=== PATIENT | female | born 1970 | race Caucasian/White ===

== ENCOUNTER 2016-10-07 11:06 | Emergency (ER) | payer OTHER ==
[2016-10-07 11:12] VITALS: BP 107/70
--- NOTE | 2016-10-07 11:29 | ERNOTE ---
Date of Service: 10/07/16 Time Seen by Provider: 10/07/16 11:20 Stated Complaint: COLD Presenting Symptoms:: cough Source: patient Immunizations: IMMUNIZATION HX Immunizations Up to Date Yes History of Influenza Vaccine More Information Required Hx Pneumococcal Vaccination More Information Required Allergies/Adverse Reactions: Allergies duloxetine HCl [From Cymbalta] Allergy (Verified 10/07/16 11:12) olanzapine [From Zyprexa] Allergy (Verified 10/07/16 11:12) oxybutynin Allergy (Verified 10/07/16 11:12) quetiapine fumarate [From Seroquel] Allergy (Verified 10/07/16 11:12) sertraline HCl [From Zoloft] Allergy (Verified 10/07/16 11:12) Sulfa (Sulfonamide Antibiotics) Allergy (Verified 10/07/16 11:12) trazodone Allergy (Verified 10/07/16 11:12) Home Medications: HOME MEDICATIONS Diazepam [Valium] 5 - 10 mg PO DAILY PRN 08/04/14 [Last Taken Unknown] chlordiazePOXIDE HCL [Librium] 25 - 50 mg PO Q6H PRN #40 capsule 08/04/14 [Last Taken Unknown] - History of Present Ilness Narrative: patient c/o cold like symptoms for the last 3 days. states she started getting diarrhea after she started mucinex. patient states she also has a sore throat. Date (Duration): 10/07/16 Timing: getting worse Severity: mild Frequency/Possible Cause: Reports: no prior episodes Modifying Factors - Improves: Reports: nothing Modifying Factors - Worsens: Reports: coughing Associated Symptoms: Reports: cough, nasal congestion, sore throat. Denies: chest pain/soreness, shortness of breath, wheezing, facial pain, dizziness, lightheadedness, earache, headache, muscle aches, fever/chills Review of Systems - Narrative Narrative: patient c/o nasal congestion and a cough when she lays flat. patient states she has had these symptoms for 3 days. states she had diarrhea after she started mucinex. denies fever - Review of Systems Constitutional: Present: See HPI, fatigue EYE: Present: no symptoms reported ENT: Present: See HPI, nose congestion Respiratory: Present: See HPI, cough Cardiology: Present: no symptoms reported Gastrointestinal/Abdominal: Present: no symptoms reported Genitourinary: Present: no symptoms reported Musculoskeletal: Present: no symptoms reported Skin: Present: no symptoms reported Neurological: Present: no symptoms reported Endocrine: Present: no symptoms reported Hematologic/Lymphatic: Present: no symptoms reported Psych: Present: no symptoms reported All Other Systems: All systems neg except as marked - Patient's Past Medical History Patient History - Medical: Alcohol Abuse, Anxiety, Chronic Pain, Depression, Headache, Liver Disease, Other Patient History - Cardiac/Respiratory: Bronchitis Patient History - Cancer: No Hx of Cancer Patient History - Surgical Procedures: Other Patient History - Other: None - Social History Living Situations: home Psych History: Hx of Schizophrenia Smoking Status: Former smoker Have you smoked in the past 12 months: Yes Alcohol Use: heavy Drug Use: cocaine, other - Immunizations Immunizations Up to Date: Yes Hx Pneumococcal Vaccination: More Information Required to Determine History of Influenza Vaccine: More Information Required to Determine Physical Exam - Physical Exam Narrative: patient nasal turbines are boggy. patient c/o sinus pressure. some clear drainage observed on the back of the throat upon oral pharyngeal exam. patient does have a history of seasonal allergies but is not currently taking her medication for them. General Appearance: Present: wd/wn, alert, no apparent distress Head Exam: Present: normal inspection, no evidence of injury. Absent: no tenderness w palpation Eye Exam: Normal inspection: bilateral, PERRL: bilateral, EOMI: bilateral Ears, Nose, Throat: Present: normal except -, normal pharynx. Absent: pharyngeal erythema, pharyngeal swelling, tonsillar exudate, tonsillar swelling Neck: Present: normal inspection, nontender, supple, full range of motion. Absent: lymphadenopathy (R), lymphadenopathy (L) Respiratory: Present: no respiratory distress, normal breath sounds, no accessory muscle use, chest nontender, lungs clear. Absent: respiratory distress, accessory muscle use, decreased breath sounds, crackles, rales, rhonchi, stridor, wheezing Cardiovascular/Chest: Present: regular rate, rhythm, no murmur, normal peripheral pulses Gastrointestinal/Abdominal: Present: normal bowel sounds, nontender, nondistended, soft, no organomegaly Back Exam: Present: normal inspection, normal range of motion, no CVA tenderness , no vertebral tenderness Extremity Exam: Present: normal inspection, non-tender, normal range of motion, no edema Neurological Exam: Present: alert, oriented, normal mood/affect, no motor/ sensory deficits Skin Exam: Present: normal color, warm/dry Lymphatic Exam: Present: no adenopathy ED Progress - Vital Signs Patient's Vital Signs:: I have reviewed the patient's vital signs. Vital Signs: Vital Signs 10/07/16 11:09 Temperature 36.9 C Pulse Rate 69 Respiratory 14 Rate Blood Pressure 107/70 O2 Sat by Pulse 97 Oximetry - Progress/Reassessment Chief Complaint: Upper Respiratory Symptoms Progress:: Unchanged Plan - Plan Plan: The patient will try [id number] Nasacort and Claritin for the next few days to see if it helps her symptoms. She should stop Mucinex if it is giving her diarrhea. Patient will follow up with her primary care provider in the next few days if symptoms do not subside. Departure - Departure Clinical Impression: Seasonal allergies Qualifiers: Chronicity: unspecified Allergic rhinitis trigger: unspecified Qualified Code(s ): J30.2 - Other seasonal allergic rhinitis Disposition: Home Follow Up Needed Condition: Stable Instructions: Allergies, [id number], Form - Excuse from Work, School, or Physical Activity Additional Instructions: Continue any previous home medications. You may purchase [id number] Nasacort and Claritin. These medications can be used to help her seasonal allergies. Return to the emergency room if she developed a fever or symptoms persist. She may follow up with her primary care provider in the next few days if needed Referrals: Aldo Harper MD [Primary Care Provider] -
== END 2016-10-07 11:49 | disposition home or self-care (01) ==
LOC: ER 11:06
DX: J30.2 Other seasonal allergic rhinitis (principal); F41.8 Other specified anxiety disorders; F17.200 Nicotine dependence, unspecified, uncomplicated